=== PATIENT | female | born 1995 | race Caucasian/White ===

== ENCOUNTER 2018-05-21 10:16 | Emergency (ER) | payer OTHER, MEDICAID ==
[~2018-05-21] VITALS: Ht 160 cm; Wt 72.6 kg
[~2018-05-21 10:16] MED LIST: FLAGYL500 MG PO; IBUPROFEN 800800 MG PO; IRON236 MG PO; MACROBID 100 M100 M1 PO; NOHOMEMEDICATIONS; NORFLEX100 MG PO; PHENERGAN 25 MG25 MG PO; PRENATAL; PRILOSEC; TYLENOL325 MG PO
[2018-05-21] MEDS ORDERED: NEXPLANON68 MG SUBQ (10:33)
[2018-05-21] MEDS ORDERED: ROBAXIN500 MG PO (11:13)
[2018-05-21 11:37] VITALS: BP 124/68
[2018-05-22] MEDS ORDERED: NORCO 5-325 TA1 EACH PO (10:25)
== END 2018-05-21 11:39 | disposition home or self-care (01) ==
LOC: M.ERS 10:16
DX: S46.911A Strain of unspecified muscle, fascia and tendon at shoulder and upper arm level, right arm, initial encounter (principal); Z88.5 Allergy status to narcotic agent; W09.8XXA Fall on or from other playground equipment, initial encounter; Y93.44 Activity, trampolining; Y92.89 Other specified places as the place of occurrence of the external cause; Y99.8 Other external cause status

== ENCOUNTER 2018-05-22 10:03 | Emergency (ER) | payer OTHER, MEDICAID ==
[~2018-05-22] VITALS: Ht 160 cm; Wt 72.6 kg
[~2018-05-22 10:03] MED LIST changes: +NEXPLANON68 MG SUBQ; +ROBAXIN500 MG PO
[2018-05-22] MEDS ORDERED: NORCO 5-325 TA1 EACH PO (10:25)
[2018-05-22 10:35] VITALS: BP 116/62
== END 2018-05-22 10:50 | disposition home or self-care (01) ==
LOC: M.ERS 10:03
DX: M25.511 Pain in right shoulder (principal); Z88.5 Allergy status to narcotic agent